=== PATIENT | male | born 1945 | race Caucasian/White ===

== ENCOUNTER 2016-05-03 17:13 | Emergency (ER) | payer OTHER, BC ==
[2016-05-03 17:23] VITALS: BP 121/79; PULSE 100; TEMP 97.8; BMI 27.8
[2016-05-03] MEDS ORDERED: OXYCODONE/APAP 5/325MG COMBO TABLET PO ONE (17:32)
--- NOTE | 2016-05-03 17:35 | PDOC ---
History of Present Illness - General Chief Complaint: Injury Stated Complaint: LT WRIST INJURY Time Seen by Provider: 05/03/16 17:23 History Source: Patient Exam Limitations: No Limitations - History of Present Illness Initial Comments: 05/03/16 17:32 70 yr male slipped on ice and fell on outstretched left hand. pt has deformity to left wrist. Pt states he hit his head no LOC. Occurred: reports: just prior to arrival Upper Extremity Pain Location: left: wrist Past History - Past Medical History Allergies/Adverse Reactions: Allergies Allergy/AdvReac Type Severity Reaction Status Date / Time No Known Allergies Allergy Verified 05/03/16 17:17 Home Medications: Ambulatory Orders Cephalexin [Keflex] 500 mg PO BID #10 capsule 05/03/16 Chlorthalidone [Hygroton -] 25 mg PO DAILY 05/03/16 Dicyclomine HCl [Bentyl -] 20 mg PO Q6H 05/03/16 Duloxetine HCl 60 mg PO ASDIR 05/03/16 Lisinopril [Prinivil] 20 mg PO ASDIR 05/03/16 Metoprolol Tartrate 100 mg PO ASDIR 05/03/16 Nortriptyline HCl [Pamelor -] 25 mg PO HS 05/03/16 Oxycodone HCl/Acetaminophen [Percocet 5-325 mg Tablet] 1 tab PO Q4H PRN #10 tablet MDD 6 05/03/16 HTN: Yes 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 - Psycho/Social/Smoking Cessation Hx Suicidal Ideation: No Smoking History: Never smoked Hx Alcohol Use: Yes (SOCIAL) Drug/Substance Use Hx: No Substance Use Type: None Review of Systems - Review of Systems Able to Perform ROS?: Yes Is the patient limited Tajik proficient: No Constitutional: No: Symptoms Reported HEENTM: No: Symptoms Reported Respiratory: No: Symptoms reported, Other Cardiac (ROS): No: Symptoms Reported ABD/GI: No: Symptoms Reported : No: Symptoms Reported Musculoskeletal: Yes: See HPI Integumentary: No: Symptoms Reported Neurological: No: Symptoms reported *Physical Exam - Vital Signs Last Vital Signs Temp Pulse Resp BP Pulse Ox 97.8 F 100 H 20 121/79 99 05/03/16 17:13 05/03/16 17:13 05/03/16 17:13 05/03/16 17:13 05/03/16 17:13 - Physical Exam General Appearance: Yes: Nourished, Appropriately Dressed, Mild Distress (pain ) HEENT: positive: EOMI, KEN Musculoskeletal: positive: Normal Inspection Extremity: positive: Normal Capillary Refill, Swelling, Other (deformed left wrist ). negative: Normal Range of Motion, Coldness Integumentary: positive: Normal Color, Dry, Warm, Other (abrasion left wrist laterally distal radius 2cm with oozing blood) Neurologic: positive: Fully Oriented, Alert, Normal Mood/Affect, Normal Response , Motor Strength 5/5 Procedures - Laceration/Wound Repair Left Lateral Wrist Wound Length: to 2.5 cm Wound Explored: clean Wound's Depth, Shape: superficial Betadine Prep: Yes Progress: 05/03/16 18:02 bacitracin and bandaid placed, cleaned with peroxide and betadine ED Treatment Course - RADIOLOGY Radiology Studies Ordered: Category Date Time Status WRIST W/HAND-LEFT* [RAD] Stat Radiology 05/03/16 17:30 Ordered - Consult/PCP Time Called: 18:00 Medical Decision Making - Medical Decision Making 05/03/16 17:34 cc: slip and fall no LOC left wrist injury hit head with no LOC will xray left wrist, deformity noted, radial pulse strong , nv intact 05/03/16 18:00 call placed to network applications specialist orthopedist for comminuted distal radius impacted fracture 05/03/16 18:02 05/03/16 18:14 [address] with [address] pt in volar splint, elevate and sling follow up tomorrow in the office pt agrees with plan, all questions asked and asnwered before discharge 05/03/16 18:39 *DC/Admit/Observation/Transfer Diagnosis at time of Disposition: Wrist fracture, open Qualifiers: Encounter type: initial encounter Laterality: left Qualified Code(s): S62.102B - Fracture of unspecified carpal bone, left wrist, initial encounter for open fracture - Discharge Dispostion Disposition: HOME Condition at time of disposition: Good - Prescriptions Prescriptions: Cephalexin [Keflex] 500 mg PO BID #10 capsule Oxycodone HCl/Acetaminophen [Percocet 5-325 mg Tablet] 1 tab PO Q4H PRN #10 tablet MDD 6 PRN Reason: Severe Pain - Referrals Referrals: Nash Saeed MD [Primary Care Provider] - Solomon Mattson MD [Staff Physician] - - Patient Instructions Additional Instructions: take keflex antibiotic for 5 days take percocet for severe pain keep the splint in place and keep elevated above level of heart follow with in the office tomorrow call in the morning to set up a time , tell the office staff wants to see you that day
[2016-05-03] MEDS ORDERED: OXYCODONE/APAP 5/325MG COMBO TABLET ONE (17:52)
[2016-05-03] MEDS ORDERED: DIPHTH,PERTUSS(ACELL),TET 0.5 ML DISP.SYRIN IM ONE (17:58)
== END 2016-05-03 19:31 | disposition home or self-care (01) ==
LOC: JER 17:13 → JERFT 17:13
PROC: 3E0234Z Introduction of Serum, Toxoid and Vaccine into Muscle, Percutaneous Approach (ICD-10-PCS; principal; 2016-05-03)
PROC: 2W39X1Z Immobilization of Left Upper Extremity using Splint (ICD-10-PCS; 2016-05-03)
DX: S52.572A Other intraarticular fracture of lower end of left radius, initial encounter for closed fracture (principal); S61.512A Laceration without foreign body of left wrist, initial encounter; W00.0XXA Fall on same level due to ice and snow, initial encounter; Y93.89 Activity, other specified; Y92.89 Other specified places as the place of occurrence of the external cause; I10 Essential (primary) hypertension; G62.89 Other specified polyneuropathies
CPT/HCPCS: 29125; 73110-TC-LT; 73130-TC-LT; 90471; 90715; 99281-25

== ENCOUNTER 2016-05-05 05:10 | Day surgery (SDC) | payer OTHER, BC ==
[2016-05-04 16:24] VITALS: BMI 27.8
[2016-05-05] MEDS ORDERED: ROPIVACAINE HCL 0.5% 30ML VIAL ONE (13:42)
[2016-05-05] MEDS ORDERED: MIDAZOLAM HCL 2 MG/2 ML SINGLE DOSE VIAL ONE ×2 (13:43)
[2016-05-05] MEDS ORDERED: PROPOFOL 20 ML ONE ×2 (14:10)
[2016-05-05] MEDS ORDERED: LIDOCAINE HCL 2% (20ML MULTI-DOSE VIAL) NR ONE (14:10)
[2016-05-05] MEDS ORDERED: SUCCINYLCHOLINE CHLORIDE 200 MG/10 ML VIAL ONE (14:11)
[2016-05-05] MEDS ORDERED: ceFAZolin SODIUM 1 GM VIAL IVPB ONE (14:40)
[2016-05-05] MEDS ORDERED: ePHEDrine SULFATE 50 MG/1 ML AMPULE ONE (14:41)
[2016-05-05] MEDS ORDERED: DEXAMETHASONE SOD PHOSPHATE 4 MG/1 ML VIAL ONE (14:47)
--- NOTE | 2016-05-05 14:56 | HP ---
Satellite PMH - Chief Complaint Chief Complaint: left wrist fx - Past Medical History Allergies/Adverse Reactions: Allergies Allergy/AdvReac Type Severity Reaction Status Date / Time No Known Allergies Allergy Verified 05/04/16 16:17 - Current Medications Current Medications: Medication Instructions Recorded Cephalexin [Keflex] 500 mg PO BID #10 capsule 05/03/16 Chlorthalidone [Hygroton -] 25 mg PO DAILY 05/03/16 Dicyclomine HCl [Bentyl -] 20 mg PO BID 05/03/16 Duloxetine HCl 60 mg PO HS 05/03/16 Lisinopril [Prinivil] 20 mg PO DAILY 05/03/16 Metoprolol Tartrate 100 mg PO DAILY 05/03/16 Nortriptyline HCl [Pamelor -] 25 mg PO HS 05/03/16 Zolpidem Tartrate [Ambien] 10 mg PO HS 05/04/16 Oxycodone HCl/Acetaminophen 1 - 2 tab PO Q6H PRN #50 tablet 05/05/16 [Percocet 5-325 mg Tablet] MDD 6 Satellite Physical Exam - Physical Examination Vital Signs: Vital Signs Period Temp Pulse Resp BP Sys/[place]al Pulse Ox Last 24 Hr 97.8 F-97.8 F 75-75 20-20 120-120/82-82 97 General Appearance: Well Nourished, Well Developed, Alert & Oriented x3 ENT: Clear Lung: Normal air movement Heart: Regular rate & rhythm Extremities: Other (left wrist- splint intact, + swelling, + deformity, nvi xrays show displaced intraarticular distal radius fx) Neurological: Intact, Alert, Oriented Satellite Impression/Plan - Impression/Plan Impression: left distal radius fx Operative Procedure: left distal radius orif Date to be Performed: 05/05/16
[2016-05-05] MEDS ORDERED: oxyCODONE HCL 5 MG TABLET PO PRN (15:18)
[2016-05-05] MEDS ORDERED: ONDANSETRON 4 MG/2 ML VIAL IVPUSH PRN (15:18)
[2016-05-05] MEDS ORDERED: LACTATED RINGERS SOLUTION 1,000 ML IV SCH (15:30)
[2016-05-05] MEDS ORDERED: VASOPRESSIN 20 UNITS/ML VIAL IV ONE (15:42)
--- NOTE | 2016-05-05 16:24 | OP ---
Operative Note - Note: Operative Date: 05/05/16 Pre-Operative Diagnosis: left distal radius fracture Operation: left distal radius ORIF, forearm fasciotomy, Brachioradialis tenotomy Implants: [employer] DVR plate Surgeon: Miky Walton Skip Locator: Solomon Mattson Anesthesiologist/BUSINESS DATA ANALYST: Devora Robert Anesthesia: General, Local Estimated Blood Loss (mls): 0 Blood Volume Replaced (mls): 0 Fluid Volume Replaced (mls): 500 Operative Report Dictated: Yes
[2016-05-05 18:08] VITALS: TEMP 98.2
[2016-05-05 19:15] VITALS: BP 108/63; PULSE 88
--- NOTE | 2016-05-05 20:03 | OP ---
DATE OF OPERATION: DATE OF DICTATION: 05/05/2016 PREOPERATIVE DIAGNOSIS: Comminuted interarticular displaced left distal radius fracture. POSTOPERATIVE DIAGNOSIS: Comminuted interarticular displaced left distal radius fracture. PROCEDURE: Left distal radius open reduction internal fixation. SURGEON: Caterina Berry M.D. CONCESSION WORKER: Solomon Mattson M.D., Devora Robert CRNA ANESTHESIA: Left interscalene block and LMA anesthesia. DRAINS: None. COMPLICATIONS: None. SPECIMENS: None. ESTIMATED BLOOD LOSS: None. BLOOD GIVEN: None. FLUID REPLACEMENT: 1000 mL. INDICATION: This patient is a 70-year-old right hand dominant male with preoperative diagnosis of a comminuted interarticular displaced left distal radius fracture. After understanding the potential risks, complications, alternatives, benefits to surgery versus nonsurgical treatment, the patient elected to undergo this procedure. DESCRIPTION OF PROCEDURE: Patient brought to operating room, peripheral IV placed, IV sedation given, 1 g of IV Ancef was given, a left interscalene block was performed. Left upper extremity was then prepped and draped in sterile fashion, elevated, exsanguinated, with an Esmarch bandage tourniquet inflated to 250 mmHg. A typical FCR approach was marked out with marking pen. The incision made with the number 15 scalpel blade. Subcutaneous hemostasis achieved with a bipolar cautery. Dissection done with scissors down to the FCR tendon. Its roof was incised with first a number 15 scalpel blade, then its floor was incised. This was like doing a fasciotomy, as the muscle tissue pushed through the fascia with some significant force. Then blunt dissection was done with my finger down to the pronator quadratus. Deep Weitlaner retractors were placed into the wound. First number 15 scalpel blade was utilized to take down the pronator quadratus off the distal radius. Periosteal elevator was then used to do periosteal dissection. The fascia site was exposed, it was opened up, curet used to take out muscle and soft tissue debris which were in the fracture site. Pickups and a rongeur were also used. Irrigation and suction was used as well. The patient exposed a distal fragment, it was highly . There were many pieces. The radial styloid was extremely displaced, therefore a brachioradialis tenotomy was performed with a scalpel blade. I was then able to reduce the distal radius in a much better way and held it out to length and pinned it in place temporarily with a 0.0625 K-wire. X-rays were taken, overall reduction was quite good and looked much, much better. Next I put on a plate. It was held in place with 2 K-wires. I liked the position of the fracture fragments. The distal radius articular congruity was restored, looked good in AP and lateral planes, I liked the position of the hardware. Therefore, 1 proximal screw was put in the oblong hole and 1 distal screw was placed. I liked the position of both with excellent subchondral support. In total, 3 proximal 2.5-mm screws were placed. These were 16, 12, and 12 mm in length and got excellent bite with all 3. I used all the screws in the 2 distal rows to capture the fracture fragments. There was excellent fixation of the radial styloid fragments, so the supplemental K-wire was removed. Final x-rays were taken in the AP, lateral, and multiple oblique planes. Area was irrigated and washed out. A portion of the distal pronator quadratus repaired over the plate with 2-0 Vicryl sutures; the rest of it was not repairable. 4-0 undyed Vicryl was used to close the deep dermal layer. Final skin reapproximation was done with a running subcuticular 4-0 Biosyn stitch. The area was washed and dried, covered with Steri-Strips, 4x4, as well as Webril and a volar splint was applied, wrapped with Harsh and Coban. The tourniquet was taken down, total tourniquet time of 90 minutes. There were no complications during the case. The patient tolerated the procedure quite well and was brought to the ambulatory recovery room in stable condition. PROCEDURE: 1. Left distal radius open reduction internal fixation. 2. Forearm fasciotomy. 3. Brachioradialis tenotomy. CATERINA BERRY M.D. [id number]
== END 2016-05-05 19:16 | disposition home or self-care (01) ==
LOC: JASU-SURG 05:10
PROVIDERS: ATTEND Orthopaedic Surgery
PROC: 0PSJ04Z Reposition Left Radius with Internal Fixation Device, Open Approach (ICD-10-PCS; principal; 2016-05-05 14:00)
DX: S52.532A Colles' fracture of left radius, initial encounter for closed fracture (principal); X58.XXXA Exposure to other specified factors, initial encounter; Y93.9 Activity, unspecified; Y92.9 Unspecified place or not applicable; Y99.9 Unspecified external cause status
CPT/HCPCS: 76000-TC; 94760